=== PATIENT | male | born 1960 | race Caucasian/White ===

== ENCOUNTER 2023-04-29 00:18 | Inpatient (IN) | payer SELFPAY ==
[2023-04-28 23:56] VITALS: BP 154/93; PULSE 62; RESP 18; TEMP 36.8; O2SAT 97
[2023-04-28 23:57] VITALS: BMI 27.8
[2023-04-29] VITALS (10 sets, daily range): BP systolic 146–170; BP diastolic 91–106; PULSE 64–84; RESP 16–18; TEMP 36.2–36.6; O2SAT 90–99; BMI 27.8
[2023-04-29] MEDS: Ondansetron 4 MG/2 ML Vial IV (00:41)
[2023-04-29] MEDS: 0.9% Normal Saline (1000mL) 1,000 ML 100 ML IV ×3 (00:41→21:24)
[2023-04-29] MEDS: Piperacil/Tazobactam 3.375 GM in 0.9% Normal Saline (50mL MB+) 50 ML IV ×4 (00:48→21:24)
--- NOTE | 2023-04-29 01:41 | EKG12_ITS ---
Test Reason : PRE-OP Blood Pressure : / mmHG Vent. Rate : 067 BPM Atrial Rate : 067 BPM P-R Int : 178 ms QRS Dur : 132 ms QT Int : 426 ms P-R-T Axes : -10 -13 004 degrees QTc Int : 450 ms Sinus rhythm with occasional Premature ventricular complexes Right bundle branch block Abnormal ECG Confirmed by MARY CARSON, LALA ([id number]), senior technical editor JANNY MUÑIZ ([id number]) on 04/29/2023 10:51:31 AM Referred By: [place] Confirmed By:LALA HERNANDEZ MD
[2023-04-29] MEDS: Acetaminophen 325 MG Tablet 650 MG PO (05:45)
[2023-04-29 06:03] LABS: Absolute Lymphocyte Count 0.86 X10^3/uL (0.83-4.51); Absolute Neutrophil Count 3.4 X10^3/uL (2.0-7.7); Basophil# 0.03 X10^3/uL; Basophil% 0.6 % (0-1); Eosinophils% 2.1 % (0-5); Hematocrit 40.6 % (40-54); Hemoglobin 13.4 g/dL (13.0-16.5); Lymphocyte # 0.86 X10^3/ul (0.83-4.51); Lymphocyte % 17.9 % (19-41); Mean Corpuscular Hgb 29.3 pg (27.0-32.0); Mean Corpuscular Volume 88.6 fL (80-94); Mean Platelet Vol. 9.9 fl (6.2-12.0); Monocyte# 0.39 X10^3/uL; Monocyte% 8.1 % (0-10); NRBC Flagged by Analyzer 0 % (0-5); Neutrophil # 3.38 X10^3/uL (2.7-7.7); Neutrophil % 70.5 % (47-70); Platelet Count 155 K/mm3 (150-450); RBC Distribution Width CV 12.2 % (11.6-14.6); RBC Distribution Width SD 39.8 fl (35.1-43.9); Red Blood Count 4.58 M/mm3 (4.6-6.2); White Blood Count 4.8 K/mm3 (4.4-11.0)
[2023-04-29 06:31] LABS: ALB/GLOB Ratio 0.9 RATIO (0.9-2.4); AST(SGOT) 311 U/L (15-37); Alanine Aminotransfer ALT/SGPT 909 U/L (16-61); Alkaline Phosphatase 134 U/L (45-117); Anion Gap 6 (5-15); BUN 11 mg/dL (7-18); BUN/Creat Ratio 10.4 RATIO (10-20); Calcium,Total 8.6 mg/dL (8.5-10.1); Chloride 108 mmol/L (98-107); Creatinine, Serum 1.06 mg/dL (0.70-1.30); EST Glomerular Filtration Rate 76 mL/min (>60); Est Glom Filt Rate - Afr Amer 91 mL/min (>60); Estimated Creatinine Clearance 88.57 ml/min; Globulin 3.2 g/dL (2.2-4.2); Glucose 111 mg/dL (74-106); Potassium 3.9 mmol/L (3.5-5.1); Protein, Total 6.2 g/dL (6.4-8.2); Sodium Level 138 mmol/L (136-145)
--- NOTE | 2023-04-29 07:49 | HP.PCM.SX_ITS ---
HPI - General General Date of Admission: 04/29/23 HPI Narrative MILKA GRANT, is a 62 M who presents from outside hospital with obstructive jaundice. The patient had cholecystectomy 5 days ago. This was done at an outside hospital. He said he went home and started having more nausea and came back again and noticed the skin was yellowing. He complains of nausea but not really pain. Denies any fevers or chills. [facility] Medical History (Updated 04/29/23 @ 07:[address] Lam Amor MD) Diabetes Former smoker History of stress test Hypertension Tourette's Home Medications amoxicillin 500 mg-potassium clavulanate 125 mg tablet 1 tab PO Q8 04/29/23 [History Last Taken 04/29/23] atorvastatin 20 mg tablet 20 mg PO QHS 04/29/23 [History Last Taken Unknown] lisinopril 20 mg tablet 20 mg PO DAILY 04/29/23 [History Last Taken 04/29/23] oxycodone-acetaminophen 5 mg-325 mg tablet 1 tab PO Q4H PRN PRN severe pain 04/29/23 [History Last Taken 04/28/23] Allergy/AdvReac Type Severity Reaction Status Date / Time No Known Allergies Allergy Verified 04/28/23 23:59 Surgical History (Updated 04/29/23 @ 00:14 by Alexandra Gambino) History of cholecystectomy Social History Smoking Status: Former smoker ROS Constitutional Constitutional: Reports anorexia; Denies fatigue or fever(s) Eyes Eyes: Denies blurry vision ENT HEENT: Denies abnormal hearing Cardiovascular Cardiovascular: Denies chest pain Respiratory/Chest Respiratory/Chest: Denies cough or dyspnea Gastrointestinal Gastrointestinal: Reports abdominal pain and nausea; Denies constipation, diarrhea or dysphagia Genitourinary Genitourinary: Denies change in urinary stream Musculoskeletal Musculoskeletal: Denies abnormal gait Integumentary Integumentary: Denies jaundice Hematologic/Lymphatic Hematologic/Lymphatic: Denies easy bleeding Vital Signs Vital Signs Vital Signs: 04/28/23 23:56 04/29/23 00:28 04/29/23 06:00 Temperature 98.3 F Temperature Source Oral Pulse Rate 62 Respiratory Rate 18 Respiratory Effort Normal Non-Labored Normal Non-Labored Respiratory Depth Normal Normal Respiratory Pattern Normal Normal Blood Pressure 154/93 H Blood Pressure Mean 113 Blood Pressure Source Monitor Blood Pressure Position Semi-Fowlers Blood Pressure Location Left Arm Pulse Ox 97 Oxygen Delivery Method Room Air Room Air Room Air 04/29/23 06:00 Temperature 97.9 F Temperature Source Temporal Pulse Rate 70 Respiratory Rate 18 Respiratory Effort Respiratory Depth Respiratory Pattern Blood Pressure 155/98 H Blood Pressure Mean 117 Blood Pressure Source Monitor Blood Pressure Position Blood Pressure Location Pulse Ox 96 Oxygen Delivery Method Room Air Weight Weight: 222 lb 10.67 oz Body Mass Index (BMI) 27.8 Physical Exam Const oriented x3 and no apparent distress Resp normal respiratory effort GI soft to palpation Palpation: tender RUQ Results Lab / Micro Data 04/29/23 05:30 04/29/23 05:30 Labs: Laboratory Results - last 24 hr 04/29/23 05:30: WBC 4.8, RBC 4.58 L, Hgb 13.4, Hct 40.6, MCV 88.6, MCH 29.3, MCHC 33.0, RDW Std Deviation 39.8, RDW Coeff of [place] 12.2, Plt Count 155, MPV 9.9, Immature Gran % (Auto) 0.800, Neut % (Auto) 70.5 H, Lymph % (Auto) 17.9 L, [place] % (Auto) 8.1, Eos % (Auto) 2.1, Baso % (Auto) 0.6, Absolute Neuts (auto) 3.4, Absolute Lymphs (auto) 0.86, Nucleated RBC % 0, Sodium 138, Potassium 3.9, Chloride 108 H, Carbon Dioxide 24.0, Anion Gap 6, BUN 11, Creatinine 1.06, Estim Creat Clear Calc 88.57, Est GFR (MDRD) Af Amer 91, Est GFR (MDRD) Non-Af 76, BUN/Creatinine Ratio 10.4, Glucose 111 H, Calcium 8.6, Total Bilirubin 5.50 H, AST 311 H, ALT 909 H, Alkaline Phosphatase 134 H, Total Protein 6.2 L, Albumin 3.0 L, Globulin 3.2, Albumin/Globulin Ratio 0.9 Assessment & Plan Assessment/Plan (1) Obstructive jaundice: PLAN: The patient was seen at an outside hospital and was found to have bilirubin of 5.5 with elevated AST and ALT. He had cholecystectomy last week without cholangiograms. It is likely that he has a stone in his common bile duct causing obstruction. He was transferred here for ERCP. I discussed ERCP with him in detail. I discussed the procedure as well as the risks including but not limited to bleeding, infection, perforation of the bile duct or bowel, pancreatitis. Patient understands the risks and is willing to proceed. I also discussed the possibility of stent placement. Lam Amor MD Pager: [facility] [address] [place] [address] [address] [place] [address] Office:
[2023-04-29 07:50] LABS: Hemoglobin A1c 6.1 % (3.8-5.6)
--- NOTE | 2023-04-29 09:44 | CASEMGMT ---
JESUS WALKER Assessment Face to Face with patient for initial transition planning/care coordination assessment. JESUS WALKER introduced self and role at [facility], pt voices understanding. Pt is A&Ox4 and is resting comfortably in bed and is calm. Pt at bedside. Care providers, pharmacy, and demographics verified. Admitting dx: Choledocholithiasis LACE Strata: 0 PCP: Garrick Aponte Specialists: denies Preferred Pharmacy: [facility] Insurance: Pt states that his insurance is through the [employer] [facility]. Pt states that he has his costs covered after he meets a deductible. Pt denies needing further resources/information regarding this. Prescription Benefit: Pt states he uses [facility] LNOK: Marya Garcia (W) Living Arrangements: Pt lives with his in a single story home with a BM with HR and a flat entrance. ADLs/IADLs: Ind Transportation: Self, DME: [facility] with enough supplies to check BS. BP Cuff. Denies all other DME uses or needs. HHC/SNF: Denies history or needs. Pt?s goal: Home no additional needs. Plan: 6-Click is 24. Pt denies home going needs at this time. CM to follow for safe DC home. Mello Dillon RN, CM
[2023-04-29] MEDS: Pantoprazole Sodium 40 MG in 0.9% Normal Saline (100mL MB+) 100 ML 330 MG IV (10:06)
[2023-04-29 12:24] LABS: Bedside Glucose 105 mg/dL (74-106)
[2023-04-29] MEDS: Lactated Ringers 1,000 ML 15 ML IV (12:52)
--- NOTE | 2023-04-29 13:24 | RAD_ITS ---
STUDY: ERCP. REASON FOR EXAM: Male, 62 years old. Choledocholithiasis. FLUOROSCOPY TIME (if supplied): ( 5 minutes and 52 seconds ) minutes/seconds. 191 mGy TECHNIQUE: An ERCP was performed by the methods analyst data processing. There is evidence of choledocholithiasis. Successful for removal. COMPARISON: None. FINDINGS: Successful removal of the choledocholithiasis. RAD/ERCP Biliary/Pancreas IMPRESSION: Successful removal of a choledocholithiasis. Electronically Signed: Hema Burleson MD at 14:50 EDT ,
--- NOTE | 2023-04-29 14:38 | MRI_ITS ---
EXAM: MR ABDOMEN WITHOUT AND WITH INTRAVENOUS CONTRAST CLINICAL INDICATION: possible duct occlusion TECHNIQUE: Multiplanar and multisequence MR images of the abdomen without and with intravenous contrast. CONTRAST: 20 cc of clear scan IV. COMPARISON: ERCP images 04/29/2023 at 12:58 PM. FINDINGS: LOWER THORAX: Unremarkable. No pleural effusion. LIVER: Unremarkable. Normal morphology. No focal mass. GALLBLADDER AND BILE DUCTS: Common bile duct measures 5 mm. On the coronal T2-weighted images there is a question of 3 tiny filling defects in the common bile duct measuring up to 3-4 mm. On the single shot fast spin-echo coronal series there appears to be a stricture in this region of the common bile duct. Of note, this exam was performed approximately 5 hours after the ERCP examination. Gas bubbles are seen within the duct on the ERCP. Cholecystectomy. PANCREAS: Unremarkable. No focal cystic or solid mass. SPLEEN: Unremarkable. Normal size without focal cystic or solid mass. ADRENALS: Unremarkable. No nodules. KIDNEYS AND URETERS: Unremarkable. Normal renal size and position. No hydronephrosis. INTRAPERITONEAL SPACE: Unremarkable. No ascites or other fluid collection. No free air. VASCULATURE: Unremarkable. Abdominal aorta is non-dilated. LYMPH NODES: No enlarged lymph nodes. MRI/MRI Abd WITH and W/O Contrast IMPRESSION: Small filling defects within the common bile duct. I suspect these may represent gas bubbles from the ERCP performed earlier. The apparent stricture on the single shot fast spin-echo sequence may be due to artifact. Recommend repeating the examination after 24 hours or more to allow the gas bubbles to dissipate. No dilatation of the duct. Electronically Signed: Wilner Almonte MD at 8:00 EDT ,
--- NOTE | 2023-04-29 14:58 | OP.ERCP_ITS ---
Patient Name: Kike Garcia Procedure Date: 04/29/2023 1:12 PM Date of : 1960 Age: 62 Procedure: ERCP Indications: Jaundice, Elevated liver enzymes Providers: Lam Amor MD Medicines: General Anesthesia Patient Profile: This is a 62 year old male. Refer to note in patient chart for documentation of history and physical. Complications: No immediate complications. Estimated blood loss: Minimal. Procedure: Pre-Anesthesia Assessment: - Prior to the procedure, a History and Physical was performed, and patient medications and allergies were reviewed. The patient's tolerance of previous anesthesia was also reviewed. The risks and benefits of the procedure and the sedation options and risks were discussed with the patient. All questions were answered, and informed consent was obtained. Prior Anticoagulants: The patient has taken no anticoagulant or antiplatelet agents. After reviewing the risks and benefits, the patient was deemed in satisfactory condition to undergo the procedure. After obtaining informed consent, the scope was passed under direct vision. Throughout the procedure, the patient's blood pressure, pulse, and oxygen saturations were monitored continuously. The Duodenoscope was introduced through the mouth, and advanced to the duodenum and used to inject contrast into the bile duct. The ERCP was accomplished without difficulty. Scope In: 1:41:13 PM Scope Out: 2:15:43 PM Total Procedure Duration Time 0 hours 34 minutes 30 seconds Findings: The major papilla was normal. A 0.035 inch x 260 cm straight Dreamwire was passed into the biliary tree. The sphincterotome was passed over the guidewire and the bile duct was then deeply cannulated. Contrast was injected. I personally interpreted the bile duct images. There was brisk flow of contrast through the ducts. Image quality was excellent. Contrast extended to the main bile duct. Contrast extended to the cystic duct. The middle third of the main bile duct was completely obstructed by narrowing secondary to previous surgery. Biliary sphincterotomy was made with a monofilament sphincterotome using ERBE electrocautery. There was no post-sphincterotomy bleeding. To discover objects, the biliary tree was swept with a 12 mm balloon starting at the middle third of the main bile duct. Nothing was found. Impression: - The major papilla appeared normal. - A biliary tract obstruction secondary to narrowing from previous surgery was found in the middle third of the main duct. - A biliary sphincterotomy was performed. - The biliary tree was swept and nothing was found. Recommendation: - Transfer patient to another hospital. Procedure Code(s): --- Professional --- 95924, Endoscopic retrograde cholangiopancreatography (ERCP); with sphincterotomy/papillotomy Diagnosis Code(s): --- Professional --- K91.89, Other postprocedural complications and disorders of digestive system K83.1, Obstruction of bile duct R17, Unspecified jaundice R74.8, Abnormal levels of other serum enzymes CPT copyright 2021 [employer] [place] [employer]. All rights reserved. The codes documented in this report are preliminary and upon camera assembler review may be revised to meet current compliance requirements. Lam Amor MD 04/29/2023 2:58:06 PM This report has been signed electronically. Number of Addenda: 1 Note Initiated On: 04/29/2023 1:12 PM Addendum Number: 1 Addendum Date: 04/29/2023 2:58:54 PM There is concern for clip on the common duct following cholecystectomy last week. Will order MRCP to evaluate and will transfer to tertiary center for treatment Lam Amor MD 04/29/2023 2:59:35 PM This report has been signed electronically.
--- NOTE | 2023-04-29 14:58 | OP.CCLET_ITS ---
04/29/2023 Garrick Aponte Re : ERCP procedure for Kike Aponte This procedure was performed on Saturday, April 29, 2023. My impressions and recommendations are as follows: Impressions : - The major papilla appeared normal. - A biliary tract obstruction secondary to narrowing from previous surgery was found in the middle third of the main duct. - A biliary sphincterotomy was performed. - The biliary tree was swept and nothing was found. Recommendations : - Transfer patient to another hospital. My findings are described in the full procedure note, which is enclosed. If I can be of further assistance, please feel free to contact me at Doctor phone number(s): , Work: . Sincerely, Lam Amor MD 04/29/2023 2:58:06 PM This report has been signed electronically.
[2023-04-30] VITALS: BP 138/93; PULSE 72; RESP 18; TEMP 36.7; O2SAT 96
[2023-04-30 02:48] VITALS: BP 149/98; PULSE 70; RESP 16; TEMP 36.6; O2SAT 97
[2023-04-30] MEDS: Piperacil/Tazobactam 3.375 GM in 0.9% Normal Saline (50mL MB+) 50 ML IV (06:13)
[2023-04-30] MEDS: 0.9% Normal Saline (1000mL) 1,000 ML 100 ML IV (06:14)
[2023-04-30] MEDS: proCHLORPERazine 10 MG/2 ML Vial IV (06:22)
--- NOTE | 2023-04-30 08:01 | NURSING ---
report given to [facility]
[2023-04-30 08:22] VITALS: BP 152/73; PULSE 82; RESP 18; TEMP 36.7; O2SAT 93
== END 2023-04-30 08:40 | disposition short-term general hospital (02) | DRG 445 ==
PROVIDERS: Anesthesiology; Admitting Provider Surgery; PCP Family Medicine; Visit Provider Surgery
PROC: 0F798ZZ Dilation of Common Bile Duct, Via Natural or Artificial Opening Endoscopic (ICD-10-PCS; CPT 43260; principal; 2023-04-29 13:10)
DX: K83.1 Obstruction of bile duct (principal); R17 Unspecified jaundice; E11.9 Type 2 diabetes mellitus without complications; I10 Essential (primary) hypertension; Z87.891 Personal history of nicotine dependence; Z90.49 Acquired absence of other specified parts of digestive tract; R74.8 Abnormal levels of other serum enzymes
CPT/HCPCS: 36415; 74183; 74330; 76000; 80053; 82962; 83036; 85025; 93005; 97802; A9575; J7030; J7120; A4216; C1769; J2405

== ENCOUNTER 2023-06-30 11:54 | Emergency (ER) | payer SELFPAY ==
[2023-06-30] VITALS (9 sets, daily range): BP systolic 114–199; BP diastolic 82–108; PULSE 85–101; RESP 16–25; TEMP 36.6; O2SAT 91–96; BMI 27.2
--- NOTE | 2023-06-30 12:25 | CT_ITS ---
STUDY: CT ABDOMEN AND PELVIS WITH CONTRAST REASON FOR EXAM: Male, 62 years old. Postoperative pain RADIATION DOSAGE (If Supplied By Facility): CTDIvol = ( 16.53 ) mGy, DLP = ( 1343.65 ) mGycm TECHNIQUE: Transaxial images were obtained from the dome of the diaphragm to the symphysis pubis without oral contrast. IV 100mL [id number]-[id number] was administered. Sagittal and coronal images were reconstructed. Individualized dose optimization techniques were used for this CT. COMPARISON: None. FINDINGS: There is a free-flowing right pleural effusion with associated consolidation in the right lung base along with left basilar atelectasis. Heart size is normal. No calcified coronary vessels noted. Fatty infiltration of liver is noted with pneumobilia likely from cholecystectomy. There is a simple 2 cm cyst in the right lobe of the liver. There has been a cholecystectomy. No CT evidence of seroma or hematoma but there is mixed soft tissue density in the gallbladder fossa which likely represents postoperative seroma or hematoma there is no evidence of organized abscess cavity. Normal spleen. Normal pancreas. Normal bilateral adrenal glands. Normal right kidney. Normal left kidney. Normal visualized stomach. Normal small intestine. Normal colon. The appendix is visualized and appears normal. And neck seen on coronal recon images 61 through 69. Normal abdominal aorta. Normal inferior vena cava. Normal retroperitoneum. Normal urinary bladder. There is a left-sided inguinal hernia containing adipose tissue. There are diffuse degenerative changes of the visualized lumbar spine, and pelvis. CT/Abdomen/Pelvis W IV Cont ONLY IMPRESSION: Mixed soft tissue density in the expected position of the gallbladder with evidence of previous cholecystectomy. The soft tissue density likely represents a postoperative seroma or hematoma but there is no evidence of abscess. Fatty liver with simple cyst in the right lobe of the liver. No suspicious enhancing lesion. Free flowing right pleural effusion with associated consolidation in the right lung base. There is left basilar atelectasis No free intraperitoneal fluid, air, or suspicious adenopathy Degenerative bony changes Electronically Signed: Chuy Castle MD at 14:54 EDT ,
--- NOTE | 2023-06-30 12:26 | EDS_ITS ---
HPI HPI - GI History of Present Illness Chief Complaint: Abd Pain Detail of Chief Complaint: Right upper quadrant abdominal pain. Informant: patient and spouse/S.O. Abdominal Pain/Flank Pain Onset: Days Context: Gradual Onset Timing: Intermittent Quality: Aching Location: RUQ Current Severity: Mild Maximum Severity: Moderate Nausea/Vomiting/Emesis GI Symptom: Negative for Nausea or Vomiting Diarrhea/Melena/Hematochezia GI Symptom: Negative for Diarrhea, Melena or Hematochezia Associated Symptoms Associated Symptoms: Negative for Dysuria, Frequency or Hematuria Narrative Narrative: 62-year-old male had a laparoscopic cholecystectomy done at [facility]. Unfortunately complication and he had injury to his common bile duct. He was seen here and had an ERCP was transferred from here up to the [facility]. There he had reconstructive surgery to attach his liver back to his GI tract. He had done well. He had a drain in place for around 2 months. The initial surgery at the [facility] was done around May 01. He did drain removed on Friday. Since he had the drain removed last Friday 3 days ago he has had recurrent right-sided abdominal pain that comes in waves. With a low-grade fever 100 over the weekend. Denies vomiting. No diarrhea or dysuria. Prior similar symptoms: Yes Recent Illness/Hospitalization: Yes PFSH PFSH Medical History Tourette's History of stress test Diabetes Former smoker Hypertension Home Medications ?Medication ?Instructions ?Recorded ?Last Taken ?Type lisinopril 20 mg tablet 20 mg PO DAILY 04/29/23 04/29/23 History oxycodone-acetaminophen 5 mg-325 1 tab PO Q4H PRN PRN severe pain 04/29/23 04/28/23 History mg tablet Allergy/AdvReac Type Severity Reaction Status Date / Time ondansetron (From Zofran) AdvReac Other Verified 06/30/23 11:54 Surgical History History of cholecystectomy Social History Smoking Status: Former smoker ROS ROS ED ROS Narrative Right-sided abdominal pain. Review of Systems ROS Unobtainable: Denies due to encephalopathy Constitutional Constitutional ED: Reports chills and fever(s) ENT ENT ED: Denies ear pain Cardiovascular Cardiovascular: Denies chest pain Respiratory/Chest Respiratory/Chest: Denies cough or dyspnea Gastrointestinal Gastrointestinal: Reports abdominal pain; Denies constipation, diarrhea, melena, nausea or vomiting Genitourinary Genitourinary ED: Denies dysuria or hematuria Musculoskeletal Musculoskeletal: Reports back pain and other Details: Right flank pain. ; Denies arthralgias Integumentary Denies abscess or Abrasions Neurologic Neurologic: Denies headache(s) Psychiatric Psychiatric: Denies anxiety, depression or suicidal thoughts Endocrine Endocrinology: Denies polydipsia or polyphagia Hematologic/Lymphatic Hematologic/Lymphatic: Denies easy bleeding or easy bruising Allergic/Immunologic Allergic/Immunologic ED: Denies mouth swelling, tongue swelling or urticaria EXAM Physical Exam Narrative Exam Narrative: 62-year-old male vital signs stable afebrile. at bedside. H EENT exam unremarkable. Neck nontender. Lungs clear to auscultation bilaterally. Heart regular rhythm rate about 100 no murmur. Chest wall nontender. Abdomen soft nondistended normal bowel sounds no peritoneal signs. Mild right sided tenderness. Very well-healed surgical incision. Dry and clean. He has a large right upper quadrant incision from his reconstructive surgery to clinic. No hernia. No mass. No distention or signs of obstruction. No peritoneal signs. Back he has right CVA tenderness. Moving all 4 extremities. Nontender no edema. Neurologically is awake and alert no focal motor deficits. Const Vital Signs: 06/30/23 11:55 06/30/23 12:54 06/30/23 13:00 Temperature 97.9 F Temperature Source Temporal Pulse Rate 101 H 87 85 Respiratory Rate 18 16 16 Blood Pressure 114/98 H 151/86 H 149/90 H Blood Pressure Mean 103 107 109 Pulse Ox 96 95 95 Oxygen Delivery Method Room Air Room Air 06/30/23 14:00 Temperature Temperature Source Pulse Rate 88 Respiratory Rate 25 H Blood Pressure 120/108 H Blood Pressure Mean 112 Pulse Ox 94 Oxygen Delivery Method Room Air Positive well nourished and well developed; Negative for obese, cachectic, contractures or unkempt General Appearance ED: well developed and NAD; Negative for unkempt, cachectic, contractures or pallor Nutritional Appearance: Negative for cachectic or obese HEENT Reports moist mucous membranes; Denies dry mucous membranes normocephalic and atraumatic; Negative for trauma or tenderness Mouth ED: No dry mucous membranes Mouth: No dry mucous membranes Eyes PERRL and EOMs intact bilaterally General Eye ED: Negative for pale conjunctiva or scleral icterus Neck no lymphadenopathy, supple and no JVD General: Negative for tenderness Carotids: Negative for other Lymph Lymphatic: Negative for other Resp normal respiratory effort and clear to auscultation bilaterally Effort and Inspection: Negative for respiratory distress Auscultation: Negative for rales, rhonchi or wheezes Cardio regular rate, regular rhythm, S1 normal heart sound, S2 normal heart sound and no murmurs Rate: Negative for bradycardia or tachycardic Rhythm: Negative for abnormal rhythm GI non-distended and no masses; Negative for non-tender GI Narrative: Right upper quadrant tenderness. No peritoneal signs. Inspection: Negative for abdominal distention Auscultation: normoactive bowel sounds Palpation: soft and tender; Negative for guarding or rebound tenderness present Back/Spine Negative for no CVA tenderness Back/Spine Narrative: Right flank and CVA tenderness. General Back: CVA tenderness Cervical Spine: Negative for cervical spine tenderness Thoracic Spine / Upper Back: Negative for thoracic spinal tenderness Lumbar Spine / Lower Back: Negative for lumbar spinal tenderness Coccyx: Negative for other Extremity General Extremety ED: Negative for edema or tenderness General Extremity: Negative for edema Neuro CN's II-XII intact bilaterally and moves all extremities Sensorium / Orientation: alert, oriented to person, oriented to place and o riented to time; Negative for orientation impaired or confused Psych mental status grossly normal and thought process normal Appearance: Negative for unkempt Attitude: No agitated Mood & Affect: Negative for depressed, anxious or tearful Skin no wounds General Skin Exam: Negative for jaundice or pallor Lesions: no lesions Rashes: no rashes Trauma: Negative for abrasion Nails: Negative for discolored MDM MDM MDM Narrative Medical decision making narrative: 62-year-old male right upper quadrant abdominal pain after having a drain pulled after having reconstructive surgery after having a laparoscopic cholecystectomy that caused a common bile duct injury. Screening labs and CAT scan are being obtained. Treated with morphine for pain and Zofran. Repeat exam at 2:10 PM. Patient is having reproducible right upper quadrant pain. Incision still looks very good. Dry and clean. We went over his labs. We are waiting on the CT results. Morphine is not controlling his pain. He will be given a dose of Dilaudid IV. Repeat exam patient doing well at 3:05 PM. Still having right-sided abdominal pain. We went over his CAT scan result which shows either a seroma or hematoma and also right pleural effusion. I am trying to get a hold of [facility]. I spoke to his office we have also going to the [facility] call line. Currently he is surgeon is in the OR. Will call us back when he is available. I have sent the CAT scan results up to the campus so if he needs to review them. Patient is aware. History & Record Review Discussion w/independent historian: Patient Additional record(s) reviewed:: Prior inpatient record, Prior outpatient record and Prior ED visit Lab Data Attestation: I reviewed the patient's lab results. Lab results narrative: CBC shows white count 9.6. H&H 12.9 and 30.9. Platelets 188. Electrolytes show gap of 6. Normal BUN and creatinine 12 and 1. Glucose 153. Liver enzymes are normal. Lipase is normal. UA normal. Labs: Laboratory Results - last 24 hr 06/30/23 06/30/23 12:05 13:39 WBC 9.6 RBC 4.38 L Hgb 12.9 L Hct 38.9 L MCV 88.8 MCH 29.5 MCHC 33.2 RDW Std Deviation 39.6 RDW Coeff of [place] 12.1 Plt Count 188 MPV 9.8 Immature Gran % (Auto) 0.500 Neut % (Auto) 78.1 H Lymph % (Auto) 9.9 L [place] % (Auto) 10.1 H Eos % (Auto) 1.0 Baso % (Auto) 0.4 Absolute Neuts (auto) 7.5 Absolute Lymphs (auto) 0.95 Nucleated RBC % 0 Sodium 136 Potassium 3.8 Chloride 106 Carbon Dioxide 24.0 Anion Gap 6 BUN 12 Creatinine 1.00 Estim Creat Clear Calc 93.89 Est GFR (MDRD) Af Amer 98 Est GFR (MDRD) Non-Af 81 BUN/Creatinine Ratio 12.0 Glucose 153 H Calcium 9.0 Total Bilirubin 1.00 AST 15 ALT 44 Alkaline Phosphatase 92 Total Protein 7.4 Albumin 3.2 Globulin 4.2 Albumin/Globulin Ratio 0.8 L Lipase 23 Urine Color Yellow Urine Clarity Clear Urine pH 6.0 Ur Specific [place] 1.015 Urine Protein 30 H Urine Glucose (UA) Normal Urine Ketones Negative Urine Occult Blood Negative Urine Nitrite Negative Urine Bilirubin Negative Urine Urobilinogen 4 H Ur Leukocyte Esterase Negative Urine RBC 0 SEEN Urine WBC 0 SEEN Ur Squamous Epith Cells 0 SEEN Urine Bacteria 0 SEEN Urine Mucus 0 SEEN Radiography Chest X-Ray - ED: Read by ED Physician, Normal, Heart, Lungs, Mediastinum, Bony Structures and No Acute Disease Diagnostic Testing: Clinical Impression(s) from Imaging Studies Abdomen/Pelvis CT 06/30/23 12:25 IMPRESSION: Mixed soft tissue density in the expected position of the gallbladder with evidence of previous cholecystectomy. The soft tissue density likely represents a postoperative seroma or hematoma but there is no evidence of abscess. Fatty liver with simple cyst in the right lobe of the liver. No suspicious enhancing lesion. Free flowing right pleural effusion with associated consolidation in the right lung base. There is left basilar atelectasis No free intraperitoneal fluid, air, or suspicious adenopathy Degenerative bony changes Electronically Signed: Chuy Castle MD at 14:54 EDT Reading Location ID and State: [facility] / [place] , Service support , Chest X-Ray 06/30/23 13:57 IMPRESSION: Bibasilar opacification suggesting either early infiltrates or atelectasis. No demonstrated effusions, follow-up recommended to ensure resolution Electronically Signed: Chuy Castle MD at 14:15 EDT , Chest x-ray, portable, single view, interpreted by myself shows normal cardiac silhouette. Normal lung holder. Bibasilar atelectasis. Small right pleural effusion. Discharge Plan Triage Chief Complaint: Abd Pain ED Provider: Fabio Bhat Dx/Rx/DC Orders Prescriptions: No Action lisinopril 20 mg tablet 20 mg PO DAILY oxycodone-acetaminophen 5-325 mg tablet 1 tab PO Q4H PRN PRN (Reason: severe pain) Primary Care Provider: Garrick Aponte Referrals: Garrick Aponte MD [Primary Care Provider] - Print Language: Maltese
[2023-06-30] MEDS: Ondansetron 4 MG/2 ML Vial IV (12:32)
[2023-06-30] MEDS: Morphine 4 MG/ML Syringe 6 MG IV (12:33)
[2023-06-30 12:49] LABS: Absolute Lymphocyte Count 0.95 X10^3/uL (0.83-4.51); Absolute Neutrophil Count 7.5 X10^3/uL (2.0-7.7); Basophil# 0.04 X10^3/uL; Basophil% 0.4 % (0-1); Hematocrit 38.9 % (40-54); Hemoglobin 12.9 g/dL (13.0-16.5); Lymphocyte # 0.95 X10^3/ul (0.83-4.51); Lymphocyte % 9.9 % (19-41); Mean Corp Hgb Conc 33.2 g/dL (32-36); Mean Corpuscular Hgb 29.5 pg (27.0-32.0); Mean Corpuscular Volume 88.8 fL (80-94); Mean Platelet Vol. 9.8 fl (6.2-12.0); Monocyte# 0.97 X10^3/uL; Monocyte% 10.1 % (0-10); NRBC Flagged by Analyzer 0 % (0-5); Neutrophil % 78.1 % (47-70); Platelet Count 188 K/mm3 (150-450); RBC Distribution Width CV 12.1 % (11.6-14.6); RBC Distribution Width SD 39.6 fl (35.1-43.9); Red Blood Count 4.38 M/mm3 (4.6-6.2); White Blood Count 9.6 K/mm3 (4.4-11.0)
[2023-06-30 13:14] LABS: ALB/GLOB Ratio 0.8 RATIO (0.9-2.4); AST(SGOT) 15 U/L (15-37); Alanine Aminotransfer ALT/SGPT 44 U/L (16-61); Albumin, Serum 3.2 g/dL (3.2-5.0); Alkaline Phosphatase 92 U/L (45-117); Anion Gap 6 (5-15); BUN 12 mg/dL (7-18); Chloride 106 mmol/L (98-107); EST Glomerular Filtration Rate 81 mL/min (>60); Est Glom Filt Rate - Afr Amer 98 mL/min (>60); Estimated Creatinine Clearance 93.89 ml/min; Globulin 4.2 g/dL (2.2-4.2); Glucose 153 mg/dL (74-106); Lipase 23 U/L (13-75); Potassium 3.8 mmol/L (3.5-5.1); Protein, Total 7.4 g/dL (6.4-8.2); Sodium Level 136 mmol/L (136-145)
[2023-06-30 13:50] LABS: Bacteria 0 SEEN /hpf (None Seen); Mucous, Urine 0 SEEN /hpf (<or=2+); Red Blood Cells-Urine 0 SEEN /hpf (0-5); Squamous Epithelial Cells - UA 0 SEEN /hpf (0-5); White Blood Cells 0 SEEN /hpf (0-5)
[2023-06-30 13:52] LABS: Color, Urine Yellow (Yellow); Glucose, Dipstick Normal (Normal); Ketone-Dipstick Negative (Negative); Leukocyte Esterase-Dipstick Negative /ul (Negative); Nitrite-Dipstick Negative (Negative); Occult Blood-Urine Negative /ul (Negative); Protein-Dipstick 30 mg/dl (Negative); Specific Gravity, Urine 1.015 (1.002-1.030); Urine Bilirubin Dipstick Negative (Negative); Urine Clarity Clear (Clear); Urine Urobilinogen 4 mg/dl (Normal)
--- NOTE | 2023-06-30 13:57 | RAD_ITS ---
STUDY: X-RAY CHEST REASON FOR EXAM: Male, 62 years old. Abdominal pain with deep breathing. TECHNIQUE: Single AP portable view of the chest. COMPARISON: 06/11/2010 FINDINGS: EKG leads overlie the chest Lungs are expanded with development of bibasilar opacifications since the previous study likely atelectasis but early infiltrates could''ve a similar appearance. No demonstrated effusions. Normal size heart. Normal mediastinum and [place]ore[place]. Normal visualized pulmonary arteries. Normal visualized aortic arch and descending thoracic aorta. Normal visualized thoracic spine. Normal visualized ribs, clavicles, and shoulders. There is no demonstrated abnormality of the visualized soft tissue structures of the upper abdomen. RAD/Chest 1 View (Portable) IMPRESSION: Bibasilar opacification suggesting either early infiltrates or atelectasis. No demonstrated effusions, follow-up recommended to ensure resolution Electronically Signed: Chuy Castle MD at 14:15 EDT ,
[2023-06-30] MEDS: HYDROmorphone 1 MG/ML Syringe IV ×3 (14:20→18:10)
--- NOTE | 2023-06-30 15:18 | NURSING ---
CALLED DR ROLAND AKINS'S OFFICE AT [facility]. LIZETT IS GOING TO MAKE SURE TO FOLLOW UP WITH THE
--- NOTE | 2023-06-30 15:33 | NURSING ---
CALLED [facility] ABOUT TRANSFER
--- NOTE | 2023-06-30 15:51 | NURSING ---
FAXED FACESHEET HAD RAD AND CT TRANSMITTED
[2023-06-30] MEDS: Ketorolac 15 MG/ML Vial IV (18:08)
== END 2023-06-30 18:36 | disposition home or self-care (01) ==
PROVIDERS: Emergency Medicine; Emergency Provider Emergency Medicine; PCP Family Medicine; Visit Provider Emergency Medicine
DX: R10.11 Right upper quadrant pain (principal); E11.9 Type 2 diabetes mellitus without complications; Z87.891 Personal history of nicotine dependence; Z90.49 Acquired absence of other specified parts of digestive tract; I10 Essential (primary) hypertension; Z79.899 Other long term (current) drug therapy
CPT/HCPCS: 71045; 74177; 80053; 81001; 83690; 85025; 96374; 96375; 96376; 99283; J7030; Q9967; A4216; J2405